=== PATIENT | male | born 1950 | race Caucasian/White ===

== ENCOUNTER → 2016-12-20 | Outpatient (CLI) | payer OTHER | LOC: FIMAGING 11:26 | PROVIDERS: ATTEND Physician Assistant Medical | DX: Z13.6 Encounter for screening for cardiovascular disorders (principal) ==

== ENCOUNTER 2017-02-06 09:31 | Day surgery (SDC) | payer OTHER ==
[2017-02-06] MEDS ORDERED: DIAZEPAM 5 MG TAB PO ONE (09:34)
[2017-02-06] MEDS ORDERED: FAMOTIDINE 20 MG TAB PO ONE (09:34)
[2017-02-06] MEDS ORDERED: diphenhydrAMINE 25 MG CAP PO ONE (09:34)
[2017-02-06] MEDS ORDERED: NS 1,000 ML IV ONE (09:34)
[2017-02-06] MEDS ORDERED: ASPIRIN EC 325 MG TAB PO ONE (09:34)
--- NOTE | 2017-02-06 09:59 | CPEKG ---
Heart Rate: 82 RR Interval: 732 P-R Interval: 184 QRSD Interval: 76 QT Interval: 368 QTC Interval: 430 P [place]: 68 QRS [place]: 46 T Wave [place]: 41 EKG Severity - NORMAL ECG - EKG Impression: SINUS RHYTHM EKG Impression: Agree with above Electronically Signed By: Joseph Sykes 06-Feb-2017 10:48:19
[2017-02-06 10:15] LABS: % IMMATURE GRANULYOCYTES 0.4 % (0.0-1.1); ABSOLUTE IMMATURE GRANULOCYTES 0.03 10^3/uL (0.00-0.10); ADD DIFF? NO; ADD MORPH? NO; ADD SCAN? NO; ATYPICAL LYMPHOCYTE FLAG 10 (0-99); FRAGMENT RBC FLAG 0 (0-99); HEMATOCRIT 43.7 % (40.0-51.0); HEMOGLOBIN 14.7 g/dL (13.7-17.5); LEFT SHIFT FLG 0 (0-99); LIPEMIA HEMOLYSIS FLAG 80 (0-99); MEAN CELL HEMOGLOBIN 29.9 pg (27.9-34.1); MEAN CELL HEMOGLOBIN CONCENTR. 33.6 g/dL (32.4-36.7); MEAN PLATELET VOLUME 9.4 fL (8.7-11.7); PLATELET CLUMPS FLAG 10 (0-99); PLATELET COUNT 192 10^3/uL (150-400); RED BLOOD CELL COUNT 4.91 10^6/uL (4.40-6.38); RED CELL DISTRIBUTION WIDTH 13.3 % (11.5-15.2)
[2017-02-06 10:21] LABS: INR 1.06 (0.83-1.16); PROTIME(PATIENT) 13.7 SEC (12.0-15.0)
[2017-02-06] MEDS ORDERED: MIDAZOLAM 2 MG/2 ML VIAL ONE (10:29)
[2017-02-06] MEDS ORDERED: LIDOCAINE 1% 300 MG/30 ML SDV ONE (10:29)
[2017-02-06] MEDS ORDERED: fentaNYL 100 MCG/2 ML INJ ONE (10:29)
[2017-02-06] MEDS ORDERED: IOPAMIDOL (ISOVUE-370) 150 ML BTL IV ONE (10:30)
[2017-02-06 10:32] LABS: ANION GAP 11 mEq/L (8-16); CALCIUM 9.2 mg/dL (8.5-10.4); CARBON DIOXIDE 20 mEq/l (22-31); CHLORIDE 113 mEq/L (97-110); CHOLESTEROL 153 mg/dL (140-220); CHOLESTEROL/HDL RATIO 4.25 RATIO (1.00-4.97); CREATININE 1.1 mg/dL (0.7-1.3); GLOMERULAR FILTRATION RATE > 60; GLUCOSE 87 mg/dL (70-100); HIGH DENSITY LIPOPROTEIN 36 mg/dL (40-65); LDL/HDL RATIO 2.64 RATIO (1.00-3.64); LOW DENSITY LIPOPROTEIN 95 mg/dL (80-100); MAGNESIUM 1.9 mg/dL (1.6-2.3); NON-HIGH DENSITY LIPOPROTEIN 117 mg/dL (90-129); POTASSIUM 4.4 mEq/L (3.5-5.2); SODIUM 144 mEq/L (134-144); TRIGLYCERIDE 114 mg/dL (40-150); VERY LOW DENSITY LIPOPROTEINS 22 mg/dL (8-25)
[2017-02-06] MEDS ORDERED: ONDANSETRON 4 MG/2 ML VIAL IVP PRN (12:18)
[2017-02-06] MEDS ORDERED: NITROGLYCERIN 0.4 MG BTL SL PRN (12:18)
[2017-02-06] MEDS ORDERED: ATROPINE SULFATE 1 MG/10 ML SYR IVP PRN (12:18)
[2017-02-06] MEDS ORDERED: HYDROCODONE/APAP 5/325 TAB PO PRN (12:18)
[2017-02-06] MEDS ORDERED: OXYCODONE/APAP 5/325 TAB PO PRN (12:18)
--- NOTE | 2017-02-06 12:48 | CPIP ---
[f rep st] INVASIVE CARDIAC PROCEDURE DATE OF PROCEDURE: 02/06/2017 PROCEDURE: Diagnostic left heart catheterization. INDICATION FOR PROCEDURE: Patient with a known history of coronary artery disease with previous PCI to the LAD, with abnormal high risk nuclear stress test findings in December 2016, with evidence of api ivy, mid and basal anterior wall ischemia, as well as apical, mid and basal inferior wall ischemia, and transient ischemic dilatation. These findings were new compared to previous study done in December 2014. The patient has been asymptomatic. However, he was asymptomatic prior to his previous percut aneous coronary intervention in 2007. He has been compliant with medical therapy, including aspirin , Plavix, and atorvastatin. PROCEDURE PERFORMED: 1. Left heart catheterization. 2. Left coronary angiography. 3. Right coronary angiography. 4. Left ventriculogram. 5. Right common femoral artery angiography. 6. Angio-Seal closure. PROCEDURE IN DETAIL: After informed consent was obtained, the patient was brought to the cardiac ca theterization lab where he was prepped and draped in a sterile fashion. Using 1% lidocaine, the rig ht groin was anesthetized. Using the modified Seldinger technique, a 6-[place]amanian catheter was placed into the right common femoral artery without complications. A JL4 catheter was used to take images of the left coronary anatomy in multiple projections. The JL4 catheter was exchanged over a guidewire for a JR4 catheter. JR4 catheter was used to take i mages of the right coronary anatomy in multiple projections. The JR4 catheter was exchanged over a guidewire for an angled pigtail catheter. Left ventriculogram was performed. LVEF of 55% to 60%. Aortic valve pullback gradient was assessed. There is no evid ence of a gradient. Imaging of the right common femoral artery was obtained demonstrating appropriate placement of the 6 -[place]ian catheter and appropriate site for Angio-Seal deployment. FINDINGS: 1. The left main is short and bifurcates into a left anterior descending and left circumflex enrique ry artery. There is no evidence of coronary disease in the left main. 2. The left anterior descending demonstrates patent stents in the ostial to proximal segment of the LAD and mid to distal LAD. There is a 50% stenosis beyond the proximal LAD stent at the level of t he first septal delivery specialist. There are some mild luminal irregularities in the distal LAD. Diagonal branches are patent with no flow-limiting disease. 3. The circumflex vessel is a dominant large caliber vessel. There are moderate-sized first and se cond obtuse marginal branches. There are mild luminal irregularities within the circumflex and obtu se marginal branches. 4. The right coronary artery is a small, nondominant vessel with mild luminal irregularities. Left ventriculogram demonstrates LVEF of 55% to 60%. CONCLUSIONS: 1. No flow-limiting coronary artery disease. 2. 50% proximal left anterior descending stenosis beyond the first stent in the left anterior desce nding. 3. Patent stents to the proximal, mid and distal left anterior descending. 4. Mild luminal irregularities within the circumflex and right coronary artery. 5. Normal left ventricular function with left ventricular ejection fraction of 55% to 60%. 6. No indication for percutaneous coronary intervention. Recommend aggressive medical management. Of note, Angio-Seal was deployed without complications. The patient tolerated the procedure well. The patient will recover in our cardiovascular unit and be discharged later this afternoon. /[id number]/MODL
== END 2017-02-06 16:00 | disposition home or self-care (01) ==
LOC: FCATH 09:31
PROVIDERS: ATTEND Internal Medicine Cardiovascular Disease
PROC: B2151ZZ Fluoroscopy of Left Heart using Low Osmolar Contrast (ICD-10-PCS; principal; 2017-02-06)
PROC: 4A023N7 Measurement of Cardiac Sampling and Pressure, Left Heart, Percutaneous Approach (ICD-10-PCS; principal; 2017-02-06)
PROC: B2111ZZ Fluoroscopy of Multiple Coronary Arteries using Low Osmolar Contrast (ICD-10-PCS; principal; 2017-02-06)
DX: I25.10 Atherosclerotic heart disease of native coronary artery without angina pectoris (principal); R94.39 Abnormal result of other cardiovascular function study; I77.9 Disorder of arteries and arterioles, unspecified; E78.4 Other hyperlipidemia; I73.9 Peripheral vascular disease, unspecified; Z95.5 Presence of coronary angioplasty implant and graft
CPT/HCPCS: C1760; J1644; J2250; J3010; Q9967